=== PATIENT | female | born 1985 | race Caucasian/White ===

== ENCOUNTER 2020-11-13 09:12 | Outpatient (RCR) | payer BC, SELFPAY ==
[2020-09-22 16:55] VITALS: BP 120/66; PULSE 84
[2020-09-28 13:12] VITALS: BP 113/62; PULSE 88
[2020-10-05 11:17] VITALS: BP 119/70; PULSE 86
[2020-10-12 11:11] VITALS: BP 115/59; PULSE 92
[2020-10-19 13:59] VITALS: BP 109/63; PULSE 89
[2020-10-26 11:36] VITALS: BP 115/64; PULSE 89
[2020-11-02 08:54] VITALS: BP 112/57; PULSE 77
[2020-11-09 09:11] VITALS: BP 111/67; PULSE 76
[2020-11-13 09:48] VITALS: BP 111/67; PULSE 78
== END 2020-11-17 10:15 | disposition home or self-care (01) ==
LOC: ANHOBOP 09:12
PROVIDERS: Visit Provider Obstetrics & Gynecology
DX: O24.419 Gestational diabetes mellitus in pregnancy, unspecified control (principal); Z3A.32 32 weeks gestation of pregnancy; Z3A.33 33 weeks gestation of pregnancy; Z3A.34 34 weeks gestation of pregnancy; Z3A.35 35 weeks gestation of pregnancy; Z3A.36 36 weeks gestation of pregnancy; Z3A.37 37 weeks gestation of pregnancy; Z3A.38 38 weeks gestation of pregnancy; Z3A.39 39 weeks gestation of pregnancy
CPT/HCPCS: 59025

== ENCOUNTER 2020-11-14 19:08 | Inpatient (IN) | payer BC, SELFPAY ==
[2020-10-18 12:30] VITALS: BMI 27.6
[2020-11-14] VITALS (76 sets, daily range): BP systolic 103–138; BP diastolic 59–106; PULSE 53–195; TEMP 36.4; O2SAT 87–100; BMI 29.3
[2020-11-14] MEDS: LACTATED RINGERS 1,000 ML 125 ML IV CONT (19:32)
--- NOTE | 2020-11-14 19:58 | WPDANESEPPF ---
Anes - Initial Pre Proc Eval Procedure: labor epidural Date/Time: 11/14/20 19:58 Surgeon: Mahamed Da Silva MD Pre Op Diagnosis: labor pain Pre Op Diagnosis: Contractions Patient Data Age: 35 Gender: F Height: 1.8 m Weight: 90 kg Last Vital Signs Pulse 76 11/14/20 19:57 BP 138/106 H 11/14/20 19:57 Pulse Ox 100 11/14/20 19:54 Allergies Allergy/AdvReac Type Severity Reaction Status Date / Time No Known Allergies Allergy Verified 08/30/17 12:43 Home Medications Medication Instructions Recorded Confirmed Type PNV cmb#95-ferrous fumarate-FA 1 tablet PO DAILY 10/12/20 10/12/20 History [] glyburide 2.5 mg PO HS 10/12/20 10/12/20 History Patient hx anesthesia problems: none Family hx anesthesia problems: none PMFSH Family History Family History Father Hypertension Family history of malignant neoplasm of urinary bladder Mother Hypertension Social History Social History Smoking status: Never smoker Alcohol intake: current Substance use: never Gender identity (if verbalized by the patient): Female Sexual Orientation (if Verbalized by the Patient): Straight or Heterosexual Spiritual care concerns: No Anes - Eval Final PreProcedure Day of Procedure 11/14/20 19:58 Patient weight: overweight ASA classification: III Anesthesia type and monitoring: regional epidural Informed Consent: The patient's anesthetic plan and its attendant risks and benefits were discussed with the patient/family/POA. Questions were solicited and answers provided to the satisfaction of the patient/family/POA.
[2020-11-14 20:11] LABS: Basophils Absolute Auto 0.1 K/mm3 (0.0-0.1); Basophils Percent Auto 0.5 % (0.2-1.2); Eosinophils Percent Auto 0.2 % (0-4.4); Hematocrit 31.1 % (37.0-47.0); Hemoglobin 9.5 g/dL (12.0-15.0); Immature Granulocyte Absolute 0.05 K/mm3 (0.00-0.031); Immature Granulocyte Percent A 0.5 % (0-0.5); Lymphocytes Absolute Auto 1.84 K/mm3 (0.9-3.2); Lymphocytes Percent Auto 19.6 % (18.3-44.2); Mean Corpuscular HGB Conc 30.5 g/dl (32-36); Mean Corpuscular Hemoglobin 23.6 pg (26-34); Mean Corpuscular Volume 77.4 fl (80-100); Monocytes Absolute Auto 0.7 K/mm3 (0.1-0.6); Monocytes Percent Auto 7.5 % (2.6-8.5); Neutrophils Absolute Auto 6.7 K/mm3 (1.3-6.7); Neutrophils Percent Auto 71.7 % (45.5-73.1); Platelet Count Result 293 k/mm3 (150-375); Red Blood Count 4.02 M/mm3 (4.2-5.4); Red Cell Distribution Width 14.2 % (11.5-14.5); White Blood Count 9.4 K/mm3 (4.5-10.0)
--- NOTE | 2020-11-14 20:11 | LDADM ---
This patient, Annamarie Nava, was admitted to Labor/Delivery/Recovery 107 on 11/14/20 at 19:08. Plans for labor, pain management and were discussed with patient. Patient/family oriented to hospital policies and general routines including ID bracelet, bed and alarms, visiting hours, pain management, procedures, bathroom and other care routines, personal items, smoking policy, room service/diet and guest tray routines, security routines, and visiting hours. Patient/Family are encouraged to report perceived risks to care and to ask questions if they do not understand what they are told or what they should do. See OBIX for further documentation.
--- NOTE | 2020-11-14 20:41 | PM.IMHP ---
H&P: HPI History of Present Illness Date/Time: 11/14/20 20:41 35-year-old 3 para 2 with a last menstrual period of 02/12/2020, EDC of 11/17/2020, presents at 39 and half weeks gestation in active labor. This has been an uncomplicated with a negative group B strep she has been taking glyburide for gestational diabetes Chief Complaint: term in active labor with gestational diabetes Review of Systems Review of Systems: All systems reviewed & are unremarkable except as noted in HPI and below PMFSH Family History Family History Father Hypertension Family history of malignant neoplasm of urinary bladder Mother Hypertension Social History Social History Smoking status: Never smoker Alcohol intake: current Substance use: never Gender identity (if verbalized by the patient): Female Sexual Orientation (if Verbalized by the Patient): Straight or Heterosexual Spiritual care concerns: No Meds Home Medications and Allergies Home Medications Medication Instructions Recorded Confirmed Type PNV cmb#95-ferrous fumarate-FA 1 tablet PO DAILY 10/12/20 11/14/20 History [] glyburide 2.5 mg PO HS 10/12/20 11/14/20 History Allergies Allergy/AdvReac Type Severity Reaction Status Date / Time No Known Allergies Allergy Verified 08/30/17 12:43 Vital Signs Vital Signs - 24 hr 11/14/20 19:17 11/14/20 19:41 11/14/20 19:42 Pulse Rate 85 78 Blood Pressure 131/82 129/76 Pulse Oximetry 100 11/14/20 19:48 11/14/20 19:50 11/14/20 19:53 Pulse Rate 81 Blood Pressure 131/72 Pulse Oximetry 100 100 11/14/20 19:54 11/14/20 19:55 11/14/20 19:57 Pulse Rate 74 70 76 Blood Pressure 136/79 118/71 138/106 H Pulse Oximetry 100 11/14/20 19:59 11/14/20 20:04 11/14/20 20:05 Pulse Rate 67 80 Blood Pressure 122/66 106/65 Pulse Oximetry 100 100 11/14/20 20:07 11/14/20 20:09 11/14/20 20:14 Pulse Rate 63 Blood Pressure 119/61 Pulse Oximetry 100 100 11/14/20 20:16 11/14/20 20:19 11/14/20 20:20 Pulse Rate 63 Blood Pressure 115/69 Pulse Oximetry 100 100 11/14/20 20:25 11/14/20 20:30 11/14/20 20:35 Pulse Rate 98 Blood Pressure 109/74 Pulse Oximetry 100 100 100 11/14/20 20:40 Pulse Rate Blood Pressure Pulse Oximetry 100 Exam Const: General: no acute distress Eyes: General: appearance normal, both eyes and all related structures Neck: Neck: supple and no JVD Thyroid: thyroid normal Resp: Effort & Inspection: normal respiratory effort Auscultation: clear to auscultation bilaterally Cardio: Rate: regular rate Rhythm: regular rhythm GI: Inspection: non-distended GI Palp: Yes Soft to palpation, No Tenderness to palpation present (GI) and No Guarding due to palpation present (GI) Auscultation: normal bowel sounds : External Female Exam: normal external appearance Speculum Exam - Vagina: normal appearance of the vagina Speculum Exam - Cervix: Cervical os closed ( cervix 7.5/100%/ -1. AROM clear. FHTs reassuring) Skin: General skin exam: no rashes or lesions noted Extrem: General: normal to inspection and no edema Psych: Mental Status: mental status grossly normal Affect: normal affect H&P: Results Labs Labs: Short CBC 11/14/20 Range/Units 20:05 WBC 9.4 (4.5-10.0) K/mm3 Hgb 9.5 L (12.0-15.0) g/dL Hct 31.1 L (37.0-47.0) % Plt Count 293 (150-375) k/mm3 Assessment and Plan Additional Plan impression: Term with gestational diabetes in active labor Plan: Spontaneous vaginal delivery is expected. Epidural is in and working
[2020-11-14 20:56] LABS: Glucose Point of Care 86 mg/dl (65-105)
[2020-11-15] VITALS (45 sets, daily range): BP systolic 91–147; BP diastolic 53–79; PULSE 64–107; RESP 18; TEMP 36.6–36.8; O2SAT 92–100
--- NOTE | 2020-11-15 02:09 | P.PCNOB_ITS ---
OB - Delivery Note Procedure Delivery date: 11/15/20 events: Gestational Diabetes Intrapartal events: None Induction method: none Delivery monitor: external FHT Route of delivery: Episiotomy description: None Laceration Description: None Quantitative Blood Loss (ml): 58 Anesthesia type: Epidural Disposition: floor [place] Baby Date of : 11/15/20 Time of : 02:00 Weeks of gestation at delivery: 39 Infant gender: Female presentation: vertex position: Right Occiput Anterior Placenta delivery description: Spontaneous cord vessel description: 3 Vessels score one minute: 9 score five minutes: 9
[2020-11-15] MEDS: OXYTOCIN 30 UNITS/NS 500 ML 30 UNITS/500 ML BAG 999 UNITS IV CONT (02:17)
[2020-11-15] MEDS: OXYTOCIN 30 UNITS/NS 500 ML 30 UNITS/500 ML BAG 125 UNITS IV CONT (02:38)
[2020-11-15] MEDS: IBUPROFEN 600 MG TABLET PO ×3 (04:37→17:52)
--- NOTE | 2020-11-15 06:19 | OBPPTRN ---
Patient transferred to post room # 292 via Wheelchair Support person present. Oriented to unit, room, information board, rooming in, admission packet and security measures. Patient verbalizes understanding. PT received such instructions per one to one discussion, mom baby care guide and demonstration through out the shift. No barriers to learning identified and PT and spouse both received instructions.
[2020-11-15] MEDS: BENZOCAINE 20% AER SPR (*SP) 56 GM CAN 1 SPRAY TOPICAL (11:52)
[2020-11-15] MEDS: WITCH HAZEL 40 PADS 1 PAD TOPICAL (11:52)
[2020-11-15] MEDS: MULTIVIT/MIN/PREN/FOL AC/IRON TABLET 1 TAB PO (11:54)
[2020-11-15] MEDS: POLYSACCHARIDE IRON COMPLEX 150 MG CAPSULE PO ×2 (11:55→17:47)
[2020-11-15] MEDS: DOCUSATE SODIUM 100 MG CAPSULE PO ×2 (11:55→17:47)
[2020-11-15] MEDS: LANOLIN (LANSINOH) 7.5 GM CREAM 1 APPLIC TOPICAL (11:56)
[2020-11-15] MEDS: ACETAMINOPHEN 325 MG TABLET 650 MG PO ×2 (11:58→17:51)
[2020-11-16 00:15] VITALS: BP 121/60; PULSE 56; RESP 16; TEMP 36.3; O2SAT 100
[2020-11-16 05:09] LABS: Hematocrit 28.5 % (37.0-47.0); Hemoglobin 8.6 g/dL (12.0-15.0)
[2020-11-16] MEDS: ACETAMINOPHEN 325 MG TABLET 650 MG PO (05:46)
[2020-11-16] MEDS: IBUPROFEN 600 MG TABLET PO (05:46)
--- NOTE | 2020-11-16 07:36 | WPDANLDPN2 ---
Anes-Prog Note L&D Date/Time: 11/16/20 07:36 Comfortable throughout: labor and delivery Neuraxial method: epidural Epidural/Spinal procedure site: clean & non-tender Neuro status: Neuro function grossly intact. Cardiovascular status: normal Respiratory status: normal Airway patency: baseline Mental status: baseline Post-Op hydration status: normal Vital Signs: Last Vital Signs Temp 36.3 C L 11/16/20 00:15 Pulse 56 L 11/16/20 00:15 Resp 16 11/16/20 00:15 BP 121/60 11/16/20 00:15 Pulse Ox 100 11/16/20 00:15 Pain score (VAS): 0 Post-procedural complaints: none Patient feedback: Patient satisfied with anesthetic care.
[2020-11-16] MEDS: DOCUSATE SODIUM 100 MG CAPSULE PO (07:58)
[2020-11-16] MEDS: POLYSACCHARIDE IRON COMPLEX 150 MG CAPSULE PO (07:58)
[2020-11-16] MEDS: MULTIVIT/MIN/PREN/FOL AC/IRON TABLET 1 TAB PO (07:58)
[2020-11-16 08:04] LABS: Rapid Plasma Reagin Non-Reactive (NonReactive)
[2020-11-16 08:25] VITALS: BP 115/68; PULSE 77; RESP 18; TEMP 36.1; O2SAT 100
--- NOTE | 2020-11-16 08:55 | PM.OBPNVD ---
OB - PN: Subj Subjective Date/time seen: 11/16/20 08:55 Narrative: Muscular-type pain in neck, but otherwise pain OK. Would like to go home. OB - PN: Obj Data Labs CBC & Chem 7: 11/16/20 04:39 Labs: Laboratory Results - last 24 hr 11/14/20 11/16/20 20:05 04:39 Hgb 8.6 L Hct 28.5 L RPR Non-reactive OB - PN A/P Plan Comments: A: PPD#1, doing well. P: Try Flexeril for neck. Home to f/u 6 weeks. Exam Psych: Other: AVSS ABD soft, nontender, fundus firm EXT nontender
[2020-11-16] MEDS: CYCLOBENZAPRINE HCL 10 MG TABLET PO (10:08)
--- NOTE | 2020-11-16 11:00 | PC.NURSE ---
Observed mother is able to independently latch with appropriate positioning/alignment. She denies slight nipple tenderness from first feedings with incorrect latch. Stressed nipple care of lanolin and warm compresses after feeding. Mother feels latch has greatly improved and feels discomfort is from previous feedings. Mother is feeding as required and waking infant to feed if needed. nurses eagerly with long steady rhythmic draws and occasional swallowing is noted. Advised to stimulate to keep infant awake and nursing effectively. Infant has had at least 8 effective feedings in the past 24 hours, and is currently meeting outcomes for weight, output, jaundice and feeding frequencies. Mother states she feels confident to continue effective at home. Reviewed transition to breast milk, signs of adequate intake, and engorgement/relief. Instructed to call ICP if intake/output less than required. Reviewed regular medications mother is taking. Information provided per Katelyn. Reviewed community resources on the [facility] website and in the Mom/Baby guide. Information on outpatient services provided. Mother has no further questions at this time.
--- NOTE | 2020-11-16 12:38 | PC.NURSE ---
Patient instructed on viewing the discharge video Mother & Baby Care, The First Two Weeks . Patient was given the opportunity and encouraged to ask questions. Patient verbalized understanding of information shared and has been given the mother/baby guide for home reference.
--- NOTE | 2020-11-16 12:56 | PM.OBDSVD ---
DS: Admitting Diagnosis Admitting Diagnosis IUP at term Labor A2DM DS: Discharge Diagnosis Discharge Diagnosis (1) (normal spontaneous vaginal delivery): Code(s): O80 - Encounter for full-term uncomplicated delivery Status: Acute (2) Gestational diabetes mellitus: Code(s): O24.419 - Gestational diabetes mellitus in , unspecified control Status: Acute OB - DS: Summary OB Procedures : None OB Procedures Intrapartum: Spontaneous Vag Delivery OB Procedures: : None DS: Data Data Completed and Pending Labs on day of discharge: Labs from last 24 hours 11/16/20 11/14/20 04:39 20:05 Hgb 8.6 L Hct 28.5 L RPR Non-reactive Discharge Plan Discharge Attending physician on discharge: Mahamed Da Silva Discharging Clinician: Mahamed Da Silva Patient Disposition: Home, Self-Care Activity: pelvic rest Diet: regular Discharge Instructions: Call or return if temperature above 100.4? F, increased abdominal pain, increased vaginal bleeding or any new problems. Education: Mom and Baby Guide Given to: Mother Follow-Up: Call your delivering provider's office for an appointment to be seen in: 6 Weeks Mom and baby should come to the [facility] for the follow-up appointment. Appointment Date/Time: November 19, 2020 at 11:00 am What to expect at your follow-up visit: Physical Assessment Call [phone] if you are unable to keep your appointment time. BREAST CARE: * Wear a snug supportive bra. * For engorgement discomfort: Breast Feeding: * Apply warm moist washcloths * Express milk as needed to relieve engorgement * Wear loose clothing * For sore nipples: * Identify correct latch-on * Apply warm moist washcloths before and after nursing * Air dry nipples after nursing * May apply Lansinoh cream to nipples EPISIOTOMY/PERINEAL CARE: * Until bleeding stops, use your carina bottle after urinating * Change your pad frequently throughout the day * No tub baths until seen by your physician - You may shower ACTIVITY: * Rest as much as possible. * Do not exercise or lift anything heavier than your baby (such as laundry or other children.) * Avoid stairs or driving as much as possible. * Do not put anything into the vagina. No douching, tampons, or sexual activity until seen by physician. NOTIFY PHYSICIAN IF YOU HAVE ANY QUESTIONS OR IF ANY OF THE FOLLOWING SYMPTOMS OCCUR: * If your perineum becomes red, swollen, or more painful than what you have experienced in the hospital. * If your vaginal bleeding becomes foul smelling. * If your vaginal bleeding becomes more heavy than a period or if your bleeding changes from pink to bright red. However, you may pass an occasional walnut-sized clot once or twice for the first week . * If you experience a sharp, shooting pain in you calves. * If you discover a hard, reddened area on your breast or if you experience flu-like symptoms. DIET: * Eat regular, well-balanced meals. * Drink plenty of fluids daily. If , drink to thirst. Stand Alone Forms: General Discharge Information Follow-up/Referrals: Mahamed Da Silva MD [Physician] - 6 Weeks Discharge Medications: New ibuprofen 600 mg tablet 600 mg PO Q6H PRN (Reason: cramps) Qty: 30 RF: 0 cyclobenzaprine 10 mg tablet 10 mg PO Q8H PRN (Reason: muscle spasm) Qty: 20 RF: 0 Niferex (Sumalate-Quatrefolic) 150 mg iron- 60 mg-1 mg tablet 1 tablet PO DAILY Qty: 30 RF: 0 Continued PNV cmb#95-ferrous fumarate-FA [] 28 mg iron- 800 mcg Tablet 1 tablet PO DAILY RF: 0 Discontinued glyburide 2.5 mg Tablet 2.5 mg PO HS RF: 0 Date of admission: 11/14/20 19:08 Primary Care Provider: PHYSICIAN,ASSOCIATE CURATOR Admitting Provider: Mahamed Da Silva Attending physician on admission: Mahamed Da Silva
[2020-11-19 12:18] VITALS: BP 134/83; PULSE 78; RESP 20; O2SAT 100
== END 2020-11-16 13:34 | disposition home or self-care (01) | DRG 807 ==
LOC: ANHLDR 20:09 → ANHOB2 11-15 06:21
PROVIDERS: Admitting Provider Obstetrics & Gynecology; Visit Provider Obstetrics & Gynecology
DX: O24.425 Gestational diabetes mellitus in childbirth, controlled by oral hypoglycemic drugs (principal); Z37.0 Single live birth; Z3A.39 39 weeks gestation of pregnancy
CPT/HCPCS: 36415; 82948; 85014; 85018; 85025; 86592; 86850; 86900; 86901; A9270; J2590; J2795; J7120

== ENCOUNTER → 2021-03-22 13:29 | Outpatient (REF) | payer BC, SELFPAY | LOC: ANHLAB 13:29 | PROVIDERS: Visit Provider Nurse Practitioner | DX: D22.72 Melanocytic nevi of left lower limb, including hip (principal) | CPT/HCPCS: 88305 ==

== ENCOUNTER → 2022-01-19 15:05 | Outpatient (CLI) | payer BC, SELFPAY ==
--- NOTE | ~2022-01-19 | US_ITS ---
EXAMINATION: US abdomen complete DATE: 01/19/2022 15:25 INDICATION: Abdominal bloating TECHNIQUE: Multiple grayscale and Doppler ultrasound images of the abdomen were obtained. COMPARISON: None available. FINDINGS: The visualized portions of the pancreas are normal. The liver is normal with normal echogen icity and echotexture 9 mm simple liver cyst. No surface nodularity. Normal hepatopetal flow in the m ain portal vein. The gallbladder is normal with no abnormal wall thickening, pericholecystic fluid or stones. The common bile duct measures 4 mm. There was no sonographic Holloway sign. The visualized por tions of the aorta and inferior vena cava are normal. The right kidney measures 11 x 4.2 x 5.7 cm. The left kidney measures 10.9 x 5.4 x 5.7 cm. The kidney s demonstrate normal parenchymal echogenicity. There is no hydronephrosis. The spleen is normal in ap pearance and measures 10.4 cm. IMPRESSION: Normal abdominal ultrasound findings. Reviewed, dictated and finalized at location K.
== END ==
PROVIDERS: PCP Physician Assistant; Visit Provider Physician Assistant
DX: R14.0 Abdominal distension (gaseous) (principal)
CPT/HCPCS: 76700

== ENCOUNTER 2023-03-30 00:38 | Day surgery (SDC) | payer BC, SELFPAY ==
[2023-03-28 15:23] VITALS: BMI 28.5
--- NOTE | 2023-03-29 13:55 | PM.IMHP ---
H&P: HPI History of Present Illness Date/Time: 03/30/23 4057 Chief Complaint: Miscarriage Narrative: 38 y/o at approximately 10 weeks gestation. She presented to the office on 03/28 for routine ultrasound exam, but the embryo only measured 8 weeks size, with no cardiac motion. SAB has been diagnosed. She desires surgical management. She has no bleeding, pain, fevers, or other symptoms. Review of Systems Review of Systems: All systems reviewed & are unremarkable except as noted in HPI and below PMFSH Past Medical History Medical History History of gestational diabetes Family History Family History Father Hypertension Family history of malignant neoplasm of urinary bladder Mother Hypertension Social History Social History Smoking status: Never smoker Alcohol intake: never Substance use: never Substance use type: does not use Living arrangements: with family Gender identity (if verbalized by the patient): Female Sexual Orientation (if Verbalized by the Patient): Straight or Heterosexual Spiritual care concerns: No Meds Home Medications and Allergies Home Medications Medication Instructions Recorded Confirmed Type vit no.95-ferrous 1 tablet PO DAILY 10/12/20 03/30/23 History fumarate 28 mg-folic acid 800 mcg tablet () Allergies Allergy/AdvReac Type Severity Reaction Status Date / Time No Known Allergies Allergy Verified 03/30/23 09:12 Exam Const: Orientation/consciousness: patient oriented x3 Other: Well-developed, well-nourished female in no acute distress. Neck: Thyroid: thyroid normal Lymphatic: no lymphadenopathy noted (in neck, axilla or inguinal nodes) Resp: Effort & Inspection: normal respiratory effort Auscultation: clear to auscultation bilaterally Cardio: Rate: regular rate Rhythm: regular rhythm Heart sounds: S1 normal heart sound present and S2 normal heart sound present GI: Other: ABD: Soft, nontender, nondistended. No guarding or rebound tenderness. No hepatosplenomegaly. : General: Yes no CVA tenderness Other: Deferred to the OR Back/Spine/Pelvis: Back: no CVA tenderness Skin: General skin exam: normal color and no rashes or lesions noted Neuro: General: patient oriented x3 Extrem: Other: Extremities: nontender with no edema Psych: Mental Status: mental status grossly normal Affect: normal affect Assessment and Plan Assessment and plan (1) Missed : Code(s): O02.1 - Missed Status: Acute Assessment and Plan: A: Missed SAB. P: Offered medical vs. surgical management, and she prefers the latter. Specifically, I have offered dilation and suction curettage. She understands risks of surgery to include risks of anesthesia, risks of pain, infection, bleeding, blood products, thromboembolic phenomena and damage to adjacent structures such as bowel, bladder, ureters, blood vessels and nerves. She understands all these risks and elects to proceed with surgery.
[2023-03-30 07:00] VITALS: BP 149/78; PULSE 82; RESP 18; TEMP 36.5; O2SAT 100
[2023-03-30] MEDS: ACETAMINOPHEN 500 MG TABLET 1000 MG PO (09:00)
--- NOTE | 2023-03-30 09:16 | P.PNAN_ITS ---
Anes - Initial Pre Proc Eval Procedure: Operation Date: 03/30/23 10:30 Proposed Procedures p Suction Dilation and Curettage - Mahamed Da Silva MD Date/Time: 03/30/23 09:16 Surgeon: Mahamed Da Silva MD Pre Op Diagnosis: Missed Ab Patient Data Age: 38 Gender: F Height: 1.8 m Weight: 90.3 kg Last Vital Signs Temp 36.5 C 03/30/23 07:00 Pulse 82 03/30/23 07:00 Resp 18 03/30/23 07:00 BP 149/78 H 03/30/23 07:00 Pulse Ox 100 03/30/23 07:00 O2 Del Method Room Air 03/30/23 07:00 Allergies Allergy/AdvReac Type Severity Reaction Status Date / Time No Known Allergies Allergy Verified 03/30/23 09:12 Home Medications Medication Instructions Recorded Confirmed Type vit no.95-ferrous 1 tablet PO DAILY 10/12/20 03/30/23 History fumarate 28 mg-folic acid 800 mcg tablet () Patient hx anesthesia problems: none Family hx anesthesia problems: none Results Review: All pre-operative results and documents have been reviewed as part of the pre- operative evaluation. [facility] Past Medical History Medical History History of gestational diabetes Family History Family History Father Hypertension Family history of malignant neoplasm of urinary bladder Mother Hypertension Social History Social History Smoking status: Never smoker Alcohol intake: never Substance use: never Substance use type: does not use Living arrangements: with family Gender identity (if verbalized by the patient): Female Sexual Orientation (if Verbalized by the Patient): Straight or Heterosexual Spiritual care concerns: No Anes - Eval Final PreProcedure Day of Procedure 03/30/23 09:16 Patient weight: normal Heart: regular rate and rhythm Lungs: clear to auscultation Airway: Mallampati scale class II Neurological: alert and oriented Last oral intake: >/= 8 hours ASA classification: II Emergent: no Anesthetic plan: proceed Anesthesia type and monitoring: general GIVS and standard monitoring Results Review: All pre-operative results and documents have been reviewed as part of the pre- operative evaluation. Informed Consent: The patient's anesthetic plan and its attendant risks and benefits were discussed with the patient/family/POA. Questions were solicited and answers pro vided to the satisfaction of the patient/family/POA.
--- NOTE | 2023-03-30 10:02 | WPDHPUPDATE1 ---
History and Physical Update Update Date/Time: 03/30/23 10:02 History and Physical has been reviewed, including an updated exam of the patient. There are NO changes in the patient's condition. Risks, benefits, and alternatives have been discussed and questions answered. Patient agrees to proceed with procedure.
[2023-03-30] MEDS: KETOROLAC 30 MG/ML VIAL (*BKC) IV PUSH (10:32)
[2023-03-30] MEDS: LIDOCAINE HCL 1% LOCAL INJ 10 ML VIAL INFILTRATE (10:32)
--- NOTE | 2023-03-30 10:39 | W.PM.PROC2 ---
Procedure Note - Detailed Date of Procedure 03/30/23 Pre-op Diagnosis Missed SAB Post-op Diagnosis Same Procedure Performed Dilation and suction curettage Surgeon Mahamed Da Silva MD Anesthesia MAC and Local (1% lidocaine) Findings POC noted Description of Procedure The patient was taken to the operating room where she was prepared and draped in the usual sterile fashion in the dorsal lithotomy position. A sterile speculum was placed into the vagina. The anterior lip of the cervix was grasped with a single-tooth tenaculum. Ten mL of 1% lidocaine was administered in a paracervical block. The cervix was gently dilated using Hegar dilators until an 8mm dilator could be passed. The 8mm curved tip suction curette was advanced. Suction curettage was performed and products of conception were aspirated. Sharp curettage was then performed until a good uterine cry was noted. A final pass with the suction curette was made. The tenaculum was removed. Hemostasis was excellent. Sponge, lap, needle and instrument counts were correct. The patient was taken to the recovery room in stable condition. I was present and scrubbed for the entire procedure. Estimated Blood Loss 50 Drains No Packing No Pathology Yes (Endometrial curettings) Complications None Condition Stable Disposition PACU
[2023-03-30 10:40] VITALS: BP 96/62; PULSE 76; RESP 16; O2SAT 99
[2023-03-30] MEDS: LACTATED RINGERS 1,000 ML 30 ML IV CONT (10:40)
[2023-03-30 11:10] VITALS: BP 106/68; PULSE 68; RESP 16
[2023-03-30 11:40] VITALS: BP 108/68; PULSE 70; RESP 14
== END 2023-03-30 11:47 | disposition home or self-care (01) ==
PROVIDERS: PCP Physician Assistant; Visit Provider Obstetrics & Gynecology
PROC: (CPT 59820; principal; 2023-03-30 10:30)
DX: O02.1 Missed abortion (principal)
CPT/HCPCS: 59820; 88264; 88305; A9270; J1885; J2250; J2704; J3010; J7120

== ENCOUNTER 2024-03-22 07:59 | Outpatient (RCR) | payer BC, SELFPAY ==
[2024-01-31 12:13] VITALS: BP 125/69; PULSE 98
[2024-01-31 12:33] VITALS: BP 125/69; PULSE 96
[2024-02-08 12:22] VITALS: BP 117/62; PULSE 106
[2024-02-14 12:31] VITALS: BP 126/62; PULSE 109
[2024-02-21 12:34] VITALS: BP 109/76; PULSE 93
[2024-02-26 14:14] VITALS: BP 129/79; PULSE 91
[2024-02-29 12:59] VITALS: BP 122/76; PULSE 90
[2024-03-04 12:37] VITALS: BP 123/71; PULSE 94
[2024-03-07 12:33] VITALS: BP 117/63; PULSE 91
[2024-03-11 08:41] VITALS: BP 122/69; PULSE 85
[2024-03-14 13:06] VITALS: BP 113/67; PULSE 65
[2024-03-19 08:41] VITALS: BP 122/66; PULSE 82
--- NOTE | ~2024-03-22 | US_ITS ---
EXAMINATION: US OB follow up w [facility] DATE: 02/26/2024 13:32 INDICATION: Gestational diabetes. Third trimester. TECHNIQUE: Real-time pelvic ultrasound was performed. COMPARISON: None. FINDINGS: There is a single living fetus in vertex presentation. The placenta is anterior. heart rate is 158 beats per minute (bpm). The amniotic fluid index is 12.6 cm which is normal. The following biometric data were obtained: Biparietal diameter (BPD): 8.2 cm; head circumference (HC): 33.8 cm; abdominal circumference (AC): 35 .1 cm; femur length (FL): 7.7 cm. These measurements are discordant with low cephalic index and high FL/BPD ratio. Estimated weight is 3445 g +/- 517 g, which correlates with the >97th percentile when 03/28/24 is used as estimated date of delivery. As single measurements, these parameters are each equal to the following estimated gestational ages: BPD: 33 weeks 0 days. HC: 38 weeks 6 days. AC: 39 weeks 0 days. FL: 39 weeks 4 days. estimated gestational age based solely on measurements from this exam is 37 weeks 4 days +/- 2 weeks 4 days. Biophysical profile performed by the technologist: breathing (30 sec sustained breathing in 30 minutes): 2 out of 2 movement (3 gross body movements in 30 minutes): 2 out of 2 tone (one episode of pcnwkdd-primgvwlb-bwaprlr limb movement): 2 out of 2 Amniotic fluid pocket (2 cm): 2 out of 2 Total score: 8 out of 8 IMPRESSION: 1. Single living fetus in vertex presentation. 2. Large for gestational age. Estimated weight is 3445 g +/- 517 g, which correlates with the > 97th percentile when 03/28/24 is used as estimated date of delivery. 3. Discordant biometrics with low cephalic index and high FL/BPD ratio. 4. Biophysical profile 8 out of 8. Reviewed, dictated and finalized at location A. 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 Single living fetus in vertex presentation. 2. Large for gestational age. Estimated weight is 3445 g +/- 517 g, which correlates with the >97th percentile when 03/28/24 is used as estimated date o f delivery. 3. Discordant biometrics with low cephalic index and high FL/BPD ratio. 4. Biophysical profile 8 out of 8.
[2024-03-22 08:37] VITALS: BP 126/61; PULSE 94
== END 2024-04-27 16:00 | disposition home or self-care (01) ==
LOC: ANHOBOP 07:59
PROVIDERS: PCP Physician Assistant; Visit Provider Obstetrics & Gynecology
DX: O24.419 Gestational diabetes mellitus in pregnancy, unspecified control (principal); Z3A.00 Weeks of gestation of pregnancy not specified
CPT/HCPCS: 59025; 76816; 76819; 99199

== ENCOUNTER 2024-03-24 22:08 | Inpatient (IN) | payer BC, SELFPAY ==
[2024-03-24] VITALS (9 sets, daily range): BP systolic 113–135; BP diastolic 60–77; PULSE 79–91; O2SAT 99–100; BMI 30.4
[2024-03-24] MEDS: LACTATED RINGERS 1,000 ML 125 ML IV CONT (22:30)
[2024-03-24 22:50] LABS: Basophils Absolute Auto 0.1 K/mm3 (0.0-0.1); Basophils Percent Auto 0.7 % (0.2-1.2); Eosinophils Percent Auto 0.3 % (0-4.4); Hematocrit 29.8 % (37.0-47.0); Hemoglobin 9.3 g/dL (12.0-15.0); Immature Granulocyte Absolute 0.07 K/mm3 (0.00-0.031); Immature Granulocyte Percent A 0.8 % (0-0.5); Lymphocytes Absolute Auto 2.37 K/mm3 (0.9-3.2); Lymphocytes Percent Auto 25.7 % (18.3-44.2); Mean Corpuscular HGB Conc 31.2 g/dl (32-36); Mean Corpuscular Hemoglobin 23.4 pg (26-34); Mean Corpuscular Volume 74.9 fl (80-100); Mean Platelet Volume 9.7 fl (7.4-10.4); Monocytes Absolute Auto 0.7 K/mm3 (0.1-0.6); Monocytes Percent Auto 7.9 % (2.6-8.5); Neutrophils Percent Auto 64.6 % (45.5-73.1); Platelet Count Result 255 k/mm3 (150-375); Red Blood Count 3.98 M/mm3 (4.2-5.4); Red Cell Distribution Width 14.6 % (11.5-14.5); White Blood Count 9.2 K/mm3 (4.5-10.0)
[2024-03-24 23:05] LABS: Glucose 96 mg/dL (65-110)
[2024-03-24 23:19] LABS: Hypochromasia 1+; Platelet Estimate Adequate (Adequate); Schistocytes None Seen
--- NOTE | 2024-03-24 23:46 | WPDANESEPP ---
Anes - Eval Pre Procedure Procedure: labor pain management Date/Time: 03/24/24 23:46 Surgeon: Rekha Preop Diagnosis: pain during labor Pre Op Diagnosis: Labor Patient Data Age: 39 Gender: F Height: 1.8 m Weight: 99 kg Last Vital Signs Pulse 80 03/24/24 23:45 BP 117/60 03/24/24 23:45 Pulse Ox 99 03/24/24 23:43 Allergies Allergy/AdvReac Type Severity Reaction Status Date / Time latex Allergy Swelling Verified 02/29/24 12:28 Home Medications Medication Instructions Recorded Confirmed Type vit no.95-ferrous 1 tablet PO DAILY 10/12/20 02/14/24 History fumarate 28 mg-folic acid 800 mcg tablet () glyburide 2.5 mg tablet 2.5 mg PO DAILY 01/31/24 02/14/24 History Laboratory Tests 03/24/24 22:42 WBC 9.2 K/mm3 (4.5-10.0) RBC 3.98 L M/mm3 (4.2-5.4) Hgb 9.3 L g/dL (12.0-15.0) Hct 29.8 L % (37.0-47.0) MCV 74.9 L fl (80-100) MCH 23.4 L pg (26-34) MCHC 31.2 L g/dl (32-36) RDW 14.6 H % (11.5-14.5) Plt Count 255 k/mm3 (150-375) MPV 9.7 fl (7.4-10.4) Immature Gran % (Auto) 0.8 H % (0-0.5) Neut % (Auto) 64.6 % (45.5-73.1) Lymph % (Auto) 25.7 % (18.3-44.2) [place] % (Auto) 7.9 % (2.6-8.5) Eos % (Auto) 0.3 % (0-4.4) Baso % (Auto) 0.7 % (0.2-1.2) Lymph # (Auto) 2.37 K/mm3 (0.9-3.2) [place] # (Auto) 0.7 H K/mm3 (0.1-0.6) Eos # (Auto) 0.0 K/mm3 (0-0.3) Baso # (Auto) 0.1 K/mm3 (0.0-0.1) Abs Immat Gran (auto) 0.07 H K/mm3 (0.00-0.031) Absolute Neuts (auto) 6.0 K/mm3 (1.3-6.7) Absolute Nucleated RBC 0.000 K/mm3 (0.0-0.012) Nucleated RBC % 0.0 % (0.0-0.2) Platelet Estimate Adequate (Adequate) Hypochromasia 1+ Schistocytes None seen Glucose 96 mg/dL (65-110) RPR Pending HIV 1&2 Ab/P24 Ag 4thGn Pending Patient hx anesthesia problems: none Family hx anesthesia problems: none Results Review: All pre-operative results and documents have been reviewed as part of the pre-operative evaluation. FORMERLY [facility], [facility] Past Medical History Medical History History of gestational diabetes Family History Family History Father Family history of malignant neoplasm of urinary bladder Hypertension Mother Hypertension Non-Hodgkin lymphoma Social History Social History Smoking status: Never smoker Alcohol intake: never Substance use: never Substance use type: does not use Living arrangements: with family Gender identity (if verbalized by the patient): Female Sexual Orientation (if Verbalized by the Patient): Straight or Heterosexual Spiritual care concerns: No Exam Day of Procedure 03/24/24 23:46
[2024-03-25] VITALS (126 sets, daily range): BP systolic 99–144; BP diastolic 47–103; PULSE 62–125; RESP 16–18; TEMP 36.6–37.4; O2SAT 96–100
[2024-03-25 01:10] LABS: Rapid Plasma Reagin Non-Reactive (NonReactive)
--- NOTE | 2024-03-25 01:27 | LDADM ---
This patient, Annamarie Nava, was admitted to Labor/Delivery/Recovery 109 on 03/24/24 at 22:08. Plans for labor, pain management and were discussed with patient. Patient/family oriented to hospital policies and general routines including ID bracelet, bed and alarms, visiting hours, pain management, procedures, bathroom and other care routines, personal items, smoking policy, room service/diet and guest tray routines, security routines, and visiting hours. Patient/Family are encouraged to report perceived risks to care and to ask questions if they do not understand what they are told or what they should do. See OBIX for further documentation.
[2024-03-25 02:27] LABS: HIV 1/2 Ab P24 Ag Result Negative (Negative)
[2024-03-25 02:45] LABS: Glucose Point of Care 84 mg/dl (65-105)
[2024-03-25] MEDS: OXYTOCIN 30 UNITS/NS 500 ML 30 UNITS/500 ML BAG IV CONT (02:52)
--- NOTE | 2024-03-25 04:32 | PM.IMHP ---
H&P: HPI History of Present Illness Date/Time: 03/25/24 04:32 Chief Complaint: Contractions Narrative: 39 y/o at 39 4/7 weeks here with contractions. Cervix 6 cm on admission. Currently comfortable with epidural. A2DM well controlled on glyburide at bedtime. GBS neg. Review of Systems Review of Systems: All systems reviewed & are unremarkable except as noted in HPI and below PMFSH Past Medical History Medical History History of gestational diabetes Surgical History Surgical History History of D&C Family History Family History Father Family history of malignant neoplasm of urinary bladder Hypertension Mother Hypertension Non-Hodgkin lymphoma Social History Social History Smoking status: Never smoker Second hand tobacco smoke exposure: No Alcohol intake: never Substance use: never Substance use type: does not use Do You Feel Safe in your Home?: Yes Lack of Transportation: No Lack of Food: Never True Current Housing: I Have Housing Concerned About Future Housing: No Difficulty Paying Gas/Electric Bills: No Difficulty Paying for Meds: No Currently Unemployed: No Education: Master's Degree or Higher Difficulty w/ Childcare or Family Care: No Living arrangements: with family Gender identity (if verbalized by the patient): Female Sexual Orientation (if Verbalized by the Patient): Straight or Heterosexual Spiritual care concerns: No Meds Home Medications and Allergies Home Medications Medication Instructions Recorded Confirmed Type vit no.95-ferrous 1 tablet PO DAILY 10/12/20 02/14/24 History fumarate 28 mg-folic acid 800 mcg tablet () glyburide 2.5 mg tablet 2.5 mg PO DAILY 01/31/24 03/24/24 History Allergies Allergy/AdvReac Type Severity Reaction Status Date / Time latex Allergy Swelling Verified 02/29/24 12:28 Vital Signs Vital Signs - 24 hr 03/24/24 22:22 03/24/24 22:30 03/24/24 23:43 Temperature Pulse Rate 80 87 Blood Pressure 135/73 113/72 Pulse Oximetry 99 03/24/24 23:45 03/24/24 23:48 03/24/24 23:52 Temperature Pulse Rate 80 91 Blood Pressure 117/60 134/67 Pulse Oximetry 99 03/24/24 23:53 03/24/24 23:55 03/24/24 23:58 Temperature Pulse Rate 88 82 85 Blood Pressure 118/77 129/68 126/73 Pulse Oximetry 100 99 03/25/24 00:00 03/25/24 00:03 03/25/24 00:06 Temperature 36.6 C Pulse Rate 92 87 85 Blood Pressure 131/70 115/68 120/66 Pulse Oximetry 100 03/25/24 00:08 03/25/24 00:11 03/25/24 00:13 Temperature Pulse Rate 86 84 87 Blood Pressure 119/61 109/56 L 118/64 Pulse Oximetry 99 99 03/25/24 00:15 03/25/24 00:18 03/25/24 00:20 Temperature Pulse Rate 88 100 82 Blood Pressure 119/73 111/47 L 130/65 Pulse Oximetry 100 03/25/24 00:23 03/25/24 00:25 03/25/24 00:28 Temperature Pulse Rate 93 85 90 Blood Pressure 117/63 122/61 125/70 Pulse Oximetry 03/25/24 00:30 03/25/24 00:33 03/25/24 00:35 Temperature Pulse Rate 112 H 86 83 Blood Pressure 134/103 H 118/66 121/62 Pulse Oximetry 03/25/24 00:38 03/25/24 00:40 03/25/24 00:43 Temperature Pulse Rate 88 78 86 Blood Pressure 127/61 125/64 121/70 Pulse Oximetry 03/25/24 00:45 03/25/24 00:48 03/25/24 00:50 Temperature Pulse Rate 80 87 96 Blood Pressure 124/72 117/61 123/69 Pulse Oximetry 03/25/24 00:53 03/25/24 00:55 03/25/24 00:58 Temperature Pulse Rate 81 86 86 Blood Pressure 123/68 116/64 120/65 Pulse Oximetry 03/25/24 01:00 03/25/24 01:08 03/25/24 01:13 Temperature Pulse Rate 100 Blood Pressure 124/72 Pulse Oximetry 100 99 03/25/24 01:16 03/25/24 01:18 03/25/24 01:23 Temperature Pulse Rate 79 Blood Pressure 117/57 L Pulse Oximetry 99 98 03/25/24 01:28 03/25/24 01:30 03/25/24 01:33 Temperature Pulse Rate 100 Blood Pressure 111/61 Pulse Oximetry 98 98 03/25/24 01:38 03/25/24 01:43 03/25/24 01:45 Temperature Pulse Rate 74 Blood Pressure 118/73 Pulse Oximetry 98 98 03/25/24 01:48 03/25/24 01:53 03/25/24 01:58 Temperature Pulse Rate Blood Pressure Pulse Oximetry 98 98 98 03/25/24 02:00 03/25/24 02:03 03/25/24 02:08 Temperature Pulse Rate 83 Blood Pressure 115/74 Pulse Oximetry 98 98 03/25/24 02:13 03/25/24 02:15 03/25/24 02:18 Temperature Pulse Rate 73 Blood Pressure 121/73 Pulse Oximetry 98 98 03/25/24 02:23 03/25/24 02:28 03/25/24 02:30 Temperature Pulse Rate 76 Blood Pressure 119/68 Pulse Oximetry 98 98 03/25/24 02:33 03/25/24 02:38 03/25/24 02:43 Temperature Pulse Rate Blood Pressure Pulse Oximetry 98 98 98 03/25/24 02:46 03/25/24 02:48 03/25/24 02:53 Temperature Pulse Rate 68 Blood Pressure 101/52 L Pulse Oximetry 99 99 03/25/24 02:58 03/25/24 03:00 03/25/24 03:03 Temperature Pulse Rate 69 Blood Pressure 104/49 L Pulse Oximetry 99 98 03/25/24 03:08 03/25/24 03:13 03/25/24 03:15 Temperature Pulse Rate 69 Blood Pressure 106/51 L Pulse Oximetry 100 99 03/25/24 03:18 03/25/24 03:23 03/25/24 03:28 Temperature Pulse Rate Blood Pressure Pulse Oximetry 99 99 100 03/25/24 03:30 03/25/24 03:33 03/25/24 03:38 Temperature Pulse Rate 69 Blood Pressure 116/64 Pulse Oximetry 99 100 03/25/24 03:43 03/25/24 03:45 03/25/24 03:48 Temperature Pulse Rate 79 Blood Pressure 121/67 Pulse Oximetry 100 99 03/25/24 03:53 03/25/24 03:58 03/25/24 04:00 Temperature Pulse Rate 80 Blood Pressure 120/68 Pulse Oximetry 99 100 03/25/24 04:03 03/25/24 04:06 03/25/24 04:11 Temperature Pulse Rate Blood Pressure Pulse Oximetry 98 100 100 03/25/24 04:15 03/25/24 04:16 03/25/24 04:21 Temperature Pulse Rate 78 Blood Pressure 126/78 Pulse Oximetry 100 100 03/25/24 04:26 03/25/24 04:30 03/25/24 04:31 Temperature Pulse Rate 84 Blood Pressure 144/68 H Pulse Oximetry 100 100 Exam Const: Orientation/consciousness: patient oriented x3 Other: Well-developed, well-nourished female in no acute distress. Neck: Thyroid: thyroid normal Lymphatic: no lymphadenopathy noted (in neck, axilla or inguinal nodes) Resp: Effort & Inspection: normal respiratory effort Auscultation: clear to auscultation bilaterally Cardio: Rate: regular rate Rhythm: regular rhythm Heart sounds: S1 normal heart sound present and S2 normal heart sound present GI: Other: ABD: Soft, nontender, nondistended, gravid. Vertex. NST reactive. TOCO: contractions every 2-3 min. : General: Yes no CVA tenderness Other: Cervix 8/90/0. AROM clear fluid. Vertex. Back/Spine/Pelvis: Back: no CVA tenderness Skin: General skin exam: normal color and no rashes or lesions noted Neuro: General: patient oriented x3 Extrem: Other: Extremities: nontender with no edema Psych: Mental Status: mental status grossly normal Affect: normal affect H&P: Results Labs Labs: Short CBC 03/24/24 Range/Units 22:42 WBC 9.2 (4.5-10.0) K/mm3 Hgb 9.3 L (12.0-15.0) g/dL Hct 29.8 L (37.0-47.0) % Plt Count 255 (150-375) k/mm3 [facility] 03/24/24 22:42 Glucose 96 Assessment and Plan Assessment and plan (1) Active labor at term: Status: Acute Assessment and Plan: A: IUP at 39 4/7 weeks with labor. A2DM, well-controlled. P: Anticipate . (2) Gestational diabetes mellitus: Code(s): O24.419 - Gestational diabetes mellitus in , unspecified control Status: Acute
--- NOTE | 2024-03-25 07:03 | PM.OBPRVD ---
OB - Vaginal Delivery Note Procedure Delivery date: 03/25/24 Events: Gestational Diabetes and Other (Labor at term) Intrapartal Events: Arrest of Descent Induction method: None Delivery augmentation: Rupture of Membranes and Pitocin Delivery monitor: External FHT and External Uterine Route of delivery: Episiotomy description: None Laceration Description: Perineal - 2nd Degree Delivery repair: vicryl (3-0) Specimen: Yes (cord blood, placenta) Quantitative Blood Loss (ml): 340 Anesthesia type: Epidural Disposition: PACU Complications: None Narrative: 39 y/o at 39 4/7 weeks gestation who presented to the hospital with contractions. Labor was diagnosed. A2DM, and glucose was normal through labor. She received an epidural. Labor was subsequently augmented with IV oxytocin. Amniotomy was performed with return of clear fluid. Her labor progressed and her cervix dilated completely. She pushed with good effort for 1.5 hours, bringing the vertex to the +2 of 3 position. At this point, pushing had become less effective. Moreover, OP position was noted. Offered VAVD. Reviewed risks, benefits and alternatives in detail, and she agreed. The Kiwi vacuum cup was applied to the vertex using the Dreifingergriff. Over one contraction, with no pop-offs, the 's head was gently flexed. It rotated and descended, then delivered to the perineum. The Kiwi was disconnected and the body delivered. The nose and mouth were bulb suctioned. After a delay, the cord was clamped and cut. The infant was handed off the field. Cord blood was collected. The placenta delivered spontaneously and was grossly normal in appearance. The usual 3 vessel cord was noted. A second degree midline perineal laceration was sustained. This was infiltrated with 10 mL of 1% lidocaine for additional anesthesia, and reapproximated using 3 0 Vicryl in the usual layered fashion. Excellent hemostasis resulted as did excellent reapproximation of the normal anatomy. Needle and instrument counts were correct. The patient was taken to recovery room in stable condition. The infant went to the nursery in stable condition. I was present and scrubbed for the entire delivery. Baby Date of : 03/25/24 Time of : 06:38 Gestational Age by Date: 39 gender: Male Weight (pounds): 9 Weight (ounces): 5 presentation: vertex position: Left Occiput Posterior Placenta delivery description: Spontaneous and Normal Configuration Cord Vessel Description: 3 Vessels and Delayed Cord Clamping score one minute: 9 score five minutes: 9
[2024-03-25] MEDS: OXYTOCIN 30 UNITS/NS 500 ML 30 UNITS/500 ML BAG 125 UNITS IV CONT (07:18)
[2024-03-25] MEDS: WITCH HAZEL 40 PADS 1 PAD TOPICAL (07:49)
[2024-03-25] MEDS: BENZOCAINE 20% AER SPR (*SP) 56 GM CAN 1 SPRAY TOPICAL (07:49)
--- NOTE | 2024-03-25 10:36 | OBPPTRN ---
277-Patient transferred to post room #277 via stretcher. Support person present. Oriented to unit, room, information board, rooming in, admission packet and security measures. Patient verbalizes understanding.
[2024-03-25] MEDS: IBUPROFEN 600 MG TABLET PO ×2 (11:01→17:14)
[2024-03-25] MEDS: POLYSACCHARIDE IRON COMPLEX 150 MG CAPSULE PO ×2 (11:02→17:13)
[2024-03-25] MEDS: MULTIVIT/MIN/PREN/FOL AC/IRON TABLET 1 TAB PO (11:02)
[2024-03-25] MEDS: DOCUSATE SODIUM 100 MG CAPSULE PO ×2 (11:03→17:13)
--- NOTE | 2024-03-25 13:30 | PC.NURSE ---
Introductions were made, then consulted with patient to assess needs related to . Discussed with mother her?plans to feed?her infant and the?experience so far. This is her 4th baby and she has successfully breastfed all her other children. She requested lanolin and nursing pads. She states that so far baby is latching well and she will call out if she has any questions or concerns. Resources provided for inpatient and outpatient services with the feeding sheet, mom/baby guide and name written on the communication board. Mother voiced understanding of information and will call if there is a request for assistance. Reported to the Primary RN.
[2024-03-26] MEDS: IBUPROFEN 600 MG TABLET PO ×2 (02:54→09:48)
[2024-03-26 07:25] VITALS: BP 121/66; PULSE 70; RESP 16; TEMP 36.6; O2SAT 100
[2024-03-26 07:30] LABS: Hematocrit 25.3 % (37.0-47.0); Hemoglobin 7.6 g/dL (12.0-15.0); Mean Corpuscular Volume 76.7 fl (80-100); Mean Platelet Volume 10.6 fl (7.4-10.4); Platelet Count Result 218 k/mm3 (150-375); Red Cell Distribution Width 14.4 % (11.5-14.5); White Blood Count 11.1 K/mm3 (4.5-10.0)
[2024-03-26] MEDS: DOCUSATE SODIUM 100 MG CAPSULE PO (07:58)
[2024-03-26] MEDS: POLYSACCHARIDE IRON COMPLEX 150 MG CAPSULE PO (07:58)
[2024-03-26] MEDS: MULTIVIT/MIN/PREN/FOL AC/IRON TABLET 1 TAB PO (07:58)
--- NOTE | 2024-03-26 12:11 | P.PNOB_ITS ---
OB - PN: Subj Subjective Date/time seen: 03/26/24 12:11 Narrative: Pain OK. Would like circumcision for son. Would like to go home. OB - PN: Obj Data Labs 03/26/24 04:30 03/24/24 22:42 Labs: Laboratory Results - last 24 hr 03/26/24 04:30 WBC 11.1 H RBC 3.30 L Hgb 7.6 L Hct 25.3 L MCV 76.7 L MCH 23.0 L MCHC 30.0 L RDW 14.4 Plt Count 218 MPV 10.6 H OB - PN A/P Assessment and Plan (1) (normal spontaneous vaginal delivery): Code(s): O80 - Encounter for full-term uncomplicated delivery Status: Acute Assessment and Plan: A: PPD#1, doing well. Would like to go home. P: Reviewed circ. Home to f/u 6 weeks. Time Spent With Patient Time: Total time spent is greater than 50% in coordination of care (as documented) at patient's floor/unit and/or counseling patient: Exam 2 Psych: Other: AVSS ABD soft, nontender, fundus firm EXT nontender
--- NOTE | 2024-03-26 12:16 | P.DS_ITS ---
DS: Admitting Diagnosis Discharge Date 03/26/24 Admitting Diagnosis IUP at 39 4/7 weeks Labor A2DM DS: Discharge Diagnosis Discharge Diagnosis (1) Vacuum-assisted delivery, delivered, current hospitalization: Code(s): O82 - Encounter for delivery without indication Status: Acute (2) Gestational diabetes mellitus: Code(s): O24.419 - Gestational diabetes mellitus in , unspecified control Status: Acute OB - DS: Summary OB Procedures : None OB Procedures Intrapartum: Vacuum extraction OB Procedures: : None Peripartum Data Laceration Description: Perineal - 2nd Degree Episiotomy description: None Time Spent with Patient Time attestation: Total time spent providing and/or coordinating discharge services: DS: Data Data Completed and Pending Pending studies at discharge: Pending at discharge 03/25/24 06:44 Surgical [PTH] Routine Labs on day of discharge: Labs from last 24 hours 03/26/24 04:30 WBC 11.1 H RBC 3.30 L Hgb 7.6 L Hct 25.3 L MCV 76.7 L MCH 23.0 L MCHC 30.0 L RDW 14.4 Plt Count 218 MPV 10.6 H Discharge Plan Discharge Attending physician on discharge: Mahamed Da Silva Discharging Clinician: Mahamed Da Silva Patient Disposition: Home, Self-Care Activity: pelvic rest Diet: regular Discharge Instructions: Call or return if temperature above 100.4? F, increased abdominal pain, increased vaginal bleeding or any new problems. Patient Language: Citizen Of [place] Stand Alone Forms: General Discharge Information Follow-up/Referrals: Mahamed Da Silva MD [Physician] - 6 Weeks Discharge Medications: New hydrocortisone [Procto-Med HC] 2.5 % cream with perineal applicator 1 applic RECTAL BID PRN (Reason: hemorrhoids) Qty: 30 0RF ferrous sulfate 325 mg (65 mg iron) tablet 325 mg PO DAILY Qty: 30 0RF Continued PNV cmb#95-ferrous fumarate-FA [] 28 mg iron- 800 mcg Tablet 1 tablet PO DAILY Discontinued glyburide 2.5 mg tablet 2.5 mg PO DAILY Date of admission: 03/24/24 22:08 Primary Care Provider: RubyVioleta Admitting Provider: Mahamed Da Silva Attending physician on admission: Mahamed Da Silva Condition: Stable
[2024-03-28 11:16] VITALS: BP 122/68; PULSE 78; RESP 20; TEMP 36.4; O2SAT 100
== END 2024-03-26 13:30 | disposition home or self-care (01) | DRG 807 ==
LOC: ANHLDR 22:16 → ANHOB2 03-25 10:25
PROVIDERS: Admitting Provider Obstetrics & Gynecology; PCP Physician Assistant; Visit Provider Obstetrics & Gynecology
DX: O24.429 Gestational diabetes mellitus in childbirth, unspecified control (principal); Z37.0 Single live birth; O70.1 Second degree perineal laceration during delivery; O62.1 Secondary uterine inertia
CPT/HCPCS: 36415; 82947; 82948; 85025; 85027; 86592; 86703; 86850; 86900; 86901; 88307; A9270; G0432; J2590; J2795; J7120